=== PATIENT | male | born 1985 | race Hispanic/Latino ===

== ENCOUNTER 2024-10-06 09:41 | Emergency (ER) | payer SELFPAY ==
[2024-10-06 09:44] VITALS: BP 139/82
--- NOTE | 2024-10-06 10:31 | ED.GENMED ---
History of Present Illness
General
Chief Complaint: Headache
Source: patient and other ([employer] [id number])
Exam Limitations: none
Time Seen by Provider: 10/06/24 10:24
Nursing documentation reviewed up to this point in time: agreed with
History of Present Illness
History of Present Illness:
39-year-old male with no past medical history states he has not slept in 4 nights due to a generalized headache that is now 5/10. He denies change in vision. Denies recent trauma. He denies nausea or vomiting. He denies neck pain or fever.
He has taken Tylenol, Advil and aspirin which relieves the headaches during the day but he cannot sleep at night due to the headaches.
Past History
Past History
ED Past Medical History: None
ED Past Surgical History: None
Social History
Tobacco: Non-smoker
Alcohol: None
Personal: Single
Living: with roommate
Employment: Employed ([employer])
Review of Systems
Review of Systems
Allergies reviewed?: Yes
All Other Systems: ROS reviewed and negative except as documented in HPI and ROS
Constitutional: Denies fever or chills
Respiratory: Denies trouble breathing
Cardiac: Denies chest pain
ABD/GI: Denies abdominal pain, nausea, vomiting or diarrhea
: Denies dysuria or difficulty voiding
Musculoskeletal: Reports no symptoms
Skin: Reports no symptoms
Neurological: Reports headache; Denies dizzy, weakness or numbness
Phy Exam
Physical Exam
Physical Exam:
GENERAL: No acute distress. A&Ox3.
CONSTITUTIONAL: Afebrile.
EYES: clear, conjunctivae normal
ENMT: moist mucus membranes, Pharynx nl
RESPIRATORY: Regular respirations, nonlabored, lungs clear.
CARDIOVASCULAR: Regular rate and rhythm, no murmurs, no rubs.
GI: Soft, nontender, normal BS
MUSCULOSKELETAL: Moves with ease. Well perfused.
SKIN: Warm, dry, pink
PSYCH: Normal mood and affect. Well kept, interactive and appropriate
NEUROLOGIC: Awake, alert and oriented. No focal neurological deficits. CN 2-12 intact. Ambulates well with steady gait.
Course
Orders/Labs/Results
Orders:
Orders
10/06/24 10:42
0.9% Sodium Chloride 1000 ml [Nss] 1,000 ml IV BOLUS
Diphenhydramine [Benadryl] 50 mg IV NOW STA
Prochlorperazine [Compazine] 10 mg IV NOW STA
10/06/24 10:57
COVID-19 Antigen Urgent
Source: Nasal Swab
Influenza A+B Rapid Molecular Urgent
[facility] Source: Nasal Swab
Specimen Description:
Vital Signs
Initial and Last Documented VS:
Initial Vital Signs
Temp Pulse Resp BP Pulse Ox
98.3 F 88 16 139/82 99
10/06/24 09:44 10/06/24 09:44 10/06/24 09:44 10/06/24 09:44 10/06/24 09:44
Last Documented Vital Signs
Temp Pulse Resp BP Pulse Ox
98.6 F 81 16 133/82 98
10/06/24 13:23 10/06/24 13:23 10/06/24 13:23 10/06/24 13:23 10/06/24 13:23
MDM/Problems Addressed
Differential Diagnosis Includes:
migraine, tension headache, sleep deprivation, Covid, Flu, Insomnia
MDM/Problems Addressed:
39-year-old male with no past medical history no history of headaches, states he has not slept in 4 nights due to a generalized headache that is now 5/10. He denies change in vision. Denies recent trauma. He denies nausea or vomiting. He denies
neck pain or fever. He has taken Tylenol, Advil and aspirin which relieves the headaches during the day but he cannot sleep at night due to the headaches.
Patient is totally nontoxic-appearing, alert and oriented, ambulating with steady gait, pleasant, neuro exam is normal, no head injury, no indication for head CT
No infectious signs, no meningeal signs
12:45 p.m.
Flu neg
Covid neg
Pt states headache is gone.
Referred to [facility]
Ambulated out with normal gait
*Critical Care Note
Total Time (30-74mins, 75-104mins- exclusive of procedures): Not Applicable
ED Attending Note
-
Portions of this chart may have been created with voice recognition software.� Occasional wrong word or��sound alike� substitutions may have occurred due to the inherent limitations of voice recognition software.
Discharge Plan
Departure
Patient Disposition: Home (Routine Discharge)
Date of Disposition: 10/06/24
Time of Disposition: 12:52
Patient with high blood pressure during this ER visit?: No
Condition: Good
Discharge Problem:
Headache, Insomnia
Instructions: Headache, Adult (DC), Insomnia (DC)
Referrals:
[facility] [Other] - Next open appointment
NONE,* [Family Provider] -
Activity Restrictions/Additional Instructions:
As we discussed, you may try Benadryl 50 mg at bedtime to help you sleep.
You may also try Melatonin
You can get both of them at any pharmacy
Tylenol or Ibuprofen as needed for headache.
Call the Clinic and make next available appointment
Interventions
Interventions:
*Risk Screen - Suicide Last Done: 10/06/24 10:35
*General Assessment Last Done: 10/06/24 09:47
*Neglect/Abuse Screening Last Done: 10/06/24 10:35
ED- Fall Risk Assessment Last Done: 10/06/24 10:55
*ED COVID-19 Vaccine History Last Done: 10/06/24 10:35
*Nursing Disposition Last Done: 10/06/24 13:23
ED-Suicide Risk Assessment Last Done: 10/06/24 10:35
ED- Neurological Assessment Last Done: 10/06/24 10:35
ED-Psychological Assessment Last Done: 10/06/24 10:35
Discharge Date and Time
Discharge Date/Time: 10/06/24 13:20
Print Language: SLOVENIAN
[2024-10-06 10:53] VITALS: BP 147/83
[2024-10-06 11:00] VITALS: BP 146/81
[2024-10-06] MEDS: COMPAZINE 10 MG IV (11:03)
[2024-10-06] MEDS: NSS 1000 IV (11:03)
[2024-10-06] MEDS: BENADRYL 50 MG IV (11:03)
[2024-10-06 11:26] LABS: COVID-19 Antigen Negative (Negative)
[2024-10-06 12:00] VITALS: BP 159/89
[2024-10-06 13:00] VITALS: BP 133/82
--- NOTE | 2024-10-06 13:22 | EDRN ---
Reviewed discharge instructions with patient via cylinder checker. Verbalized understanding. [facility]
[2024-10-06 13:23] VITALS: BP 133/82
== END 2024-10-06 13:20 | disposition home or self-care (01) ==
LOC: EMR 09:41
PROVIDERS: Registered Nurse; EMERGENCY PHYSICIAN Student in an Organized Health Care Education/Training Program
DX: R51.9 Headache, unspecified (principal); G47.00 Insomnia, unspecified
CPT/HCPCS: 99282; 87502; 87811